=== PATIENT | male | born 1975 | race Caucasian/White ===

== ENCOUNTER 2021-04-18 00:14 | Emergency (ER) | payer OTHER ==
[~2021-04-18] VITALS: Ht 185.4 cm; Wt 65.8 kg
[2021-04-18] MEDS ORDERED: TDAP [DIPH/PERTUSSIS/TET] 0.5 ML VIAL IM ONE ×2 (00:30→00:36)
[2021-04-18] MEDS ORDERED: LIDOCAINE 1%-EPI 1:100,000 20 ML VIAL ONE (00:51)
--- NOTE | 2021-04-18 01:01 | NUR ---
ER MD AT BEDSIDE FOR SUTURES
--- NOTE | 2021-04-18 01:09 | NUR ---
Patient discharged in stable condition. Written and verbal after care instructions given. Patient verbalizes understanding of instruction. Left with [employer].
[2021-04-18 01:11] VITALS: BP 119/76
== END 2021-04-18 01:11 | disposition home or self-care (01) ==
LOC: ER 00:30
DX: S51.812A Laceration without foreign body of left forearm, initial encounter (principal); W26.0XXA Contact with knife, initial encounter; Y93.89 Activity, other specified; Y92.89 Other specified places as the place of occurrence of the external cause; Y99.8 Other external cause status
CPT/HCPCS: 12002; 90471; 90715; 99283; J3490